=== PATIENT | male | born 1995 | race Caucasian/White ===

== ENCOUNTER 2018-01-15 09:03 | Emergency (ER) | payer OTHER ==
[~2018-01-15] VITALS: Ht 167.6 cm; Wt 61.2 kg
[2018-01-15 09:13] VITALS: BP_SYST 151
[2018-01-15] MEDS ORDERED: NACL 0.9% 1,000 ML IV ONE (09:45)
[2018-01-15] MEDS ORDERED: LORazepam 2 MG/ML VIAL (FOR ER USE) IVP ONE (09:45)
[2018-01-15 10:06] LABS: BASOPHILS # (AUTO) 0.2 K/uL (0.0-0.2); BASOPHILS % (AUTO) 1.9 % (0.0-2.0); EOSINOPHILS # (AUTO) 0.2 K/uL (0.0-0.4); EOSINOPHILS % (AUTO) 2.5 % (0.0-4.0); HEMATOCRIT 48.8 % (36-54); HEMOGLOBIN 16.7 g/dL (14.0-18.0); LYMPHOCYTES # (AUTO) 1.9 K/uL (1.0-5.5); LYMPHOCYTES % (AUTO) 22.8 % (20.5-51.5); MEAN CORPUSCULAR HEMOGLOBIN 31 pg (27-31); MEAN CORPUSCULAR HGB CONC 34 % (32-36); MEAN CORPUSCULAR VOLUME 91 fL (79.0-98.0); MONOCYTES # (AUTO) 0.4 K/uL (0.0-1.0); MONOCYTES % (AUTO) 5.3 % (1.7-9.3); NEUTROPHILS # (AUTO) 5.4 K/uL (1.8-7.7); NEUTROPHILS % (AUTO) 67.5 % (40.0-70.0); PLATELET COUNT (AUTO) 264 K/uL (130-430); RED BLOOD CELL COUNT(AUTO) 5.38 MIL/uL (4.2-6.2); RED CELL DISTRIBUTION WIDTH 12.1 % (9.0-15.0); WHITE BLOOD COUNT (AUTO) 8.1 K/uL (4.8-10.8)
[2018-01-15 10:22] LABS: CALCIUM 10.1 mg/dL (8.4-11.0); CREATININE 1.07 mg/dL (0.55-1.30); POTASSIUM 3.7 mmol/L (3.5-5.1)
[2018-01-15 10:26] LABS: ALBUMIN 5.2 g/dL (3.4-4.8); TOTAL BILIRUBIN 0.9 mg/dL (0.0-1.0)
[2018-01-15 11:13] VITALS: BP_SYST 136
== END 2018-01-15 11:13 | disposition home or self-care (01) ==
LOC: SED 09:03
DX: F41.9 Anxiety disorder, unspecified (principal); J45.909 Unspecified asthma, uncomplicated; Z88.5 Allergy status to narcotic agent
CPT/HCPCS: 36415; 70360; 80053; 85025; 96374; 99285; J2060; J7030